=== PATIENT | male | born 1975 | race Hispanic/Latino ===

== ENCOUNTER → 2018-05-25 | Outpatient (CLI) | payer OTHER | END | disposition home or self-care (01) | LOC: RAH 09:44 | PROVIDERS: ATTEND Internal Medicine | DX: I73.9 Peripheral vascular disease, unspecified (principal) | CPT/HCPCS: 76775; 93925 ==

== ENCOUNTER → 2021-12-22 | Outpatient (CLI) | payer OTHER | END | disposition home or self-care (01) | LOC: DTH 11:42 | PROVIDERS: ATTEND Surgery | DX: Z71.3 Dietary counseling and surveillance (principal); I10 Essential (primary) hypertension; E66.3 Overweight; G47.33 Obstructive sleep apnea (adult) (pediatric); E66.01 Morbid (severe) obesity due to excess calories; K76.0 Fatty (change of) liver, not elsewhere classified; E78.00 Pure hypercholesterolemia, unspecified | CPT/HCPCS: 97803 ==

== ENCOUNTER → 2022-01-12 | Outpatient (CLI) | payer OTHER | END | disposition home or self-care (01) | LOC: DTH 11:25 | PROVIDERS: ATTEND Surgery | DX: Z71.3 Dietary counseling and surveillance (principal); G47.33 Obstructive sleep apnea (adult) (pediatric); E66.01 Morbid (severe) obesity due to excess calories; I10 Essential (primary) hypertension; E78.00 Pure hypercholesterolemia, unspecified; K76.0 Fatty (change of) liver, not elsewhere classified | CPT/HCPCS: 97803 ==

== ENCOUNTER → 2022-04-06 | Outpatient (CLI) | payer OTHER, MEDICARE ==
[~2022-04-06] MED LIST: ALBU8.5H8 IH; ALLO300T2 PO; ALPR0.255 PO; FLUT1BLS3 IH
== END | disposition home or self-care (01) ==
LOC: RAH 09:22
PROVIDERS: ATTEND Internal Medicine
DX: Z01.818 Encounter for other preprocedural examination (principal); K43.9 Ventral hernia without obstruction or gangrene; E66.01 Morbid (severe) obesity due to excess calories
CPT/HCPCS: 76705

== ENCOUNTER 2022-04-09 05:52 | Inpatient (IN) | payer OTHER, MEDICARE ==
[2022-04-02 09:40] LABS: BASOPHILS % (AUTO) 0.8 % (0.0-5.0); EOSINOPHILS % (AUTO) 6.5 % (0.0-8.0); HEMATOCRIT 43.2 % (42-54); LYMPHOCYTES % (AUTO) 19.5 % (21.0-51.0); MEAN CORPUSCULAR HEMOGLOBIN 30.5 pg (27.0-33.0); MEAN CORPUSCULAR HGB CONC 34.3 g/dL (32.0-36.0); MEAN CORPUSCULAR VOLUME 88.9 fL (79-99); MONOCYTES % (AUTO) 8.9 % (3.0-13.0); NEUTROPHILS % (AUTO) 63.9 % (40.0-77.0); PLATELET COUNT (AUTO) 213 K/uL (130-400); RED BLOOD CELL COUNT(AUTO) 4.86 MIL/uL (4.50-6.20); RED CELL DISTRIBUTION WIDTH 12.4 % (11.0-15.5); WHITE BLOOD COUNT (AUTO) 7.1 K/uL (4.8-10.8)
[2022-04-02 09:54] LABS: POTASSIUM 4.1 mmol/L (3.5-5.1)
[2022-04-08 09:19] VITALS: BP 172/73
[~2022-04-09] VITALS: Ht 172.7 cm; Wt 178.0 kg
[2022-04-09] VITALS (27 sets, daily range): BP systolic 104–139; BP diastolic 60–85
[~2022-04-09 05:52] MED LIST changes: -FLUT1BLS3 IH
[2022-04-09] MEDS ORDERED: LACTATED RINGERS 1000ML 1,000 ML IV ONE (06:14)
[2022-04-09] MEDS ORDERED: CEFOXITIN SODIUM 2 GM VIAL ONE (06:15)
[2022-04-09] MEDS: HEPARIN 5,000 UNIT VIAL ONE ×2 (06:44→07:55)
[2022-04-09] MEDS ORDERED: ONDANSETRON 4MG INJ ONE (06:46)
[2022-04-09] MEDS ORDERED: PROPOFOL 10 MG/ML 20ML VIAL IV ONE ×2 (06:46→08:19)
[2022-04-09] MEDS ORDERED: ROCURONIUM 10MG/1ML SYR 10 MG/ML ML ONE (06:47)
[2022-04-09] MEDS ORDERED: MIDAZOLAM HCL 1 MG/ML 2ML VIAL ONE (06:47)
[2022-04-09] MEDS ORDERED: FENTANYL CITRATE PF 50 MCG/1 ML 2ML VIAL ONE ×2 (06:47→08:25)
[2022-04-09] MEDS ORDERED: FLUT1BLS3 IH (06:48)
[2022-04-09] MEDS ORDERED: METHYLENE BLUE 5 MG/ML AMP ONE (06:54)
[2022-04-09] MEDS ORDERED: HEPARIN 1,000 UNIT VIAL ONE (06:54)
[2022-04-09] MEDS ORDERED: BUPIVACAINE/EPI/PF 0.5% 30ML VIAL IJ ONE (06:54)
[2022-04-09] MEDS ORDERED: KETAMINE 50MG/ML SYRINGE 50 MG/ML DISP.SYRIN IV ONE (07:05)
[2022-04-09] MEDS ORDERED: DEXMEDETOMIDINE HCL 200 MCG/2 ML VIAL IV ONE (07:05)
[2022-04-09] MEDS ORDERED: SCOPOLAMINE HYDROBROMIDE 1 EACH ADH..PATCH TD ONE (07:05)
[2022-04-09] MEDS ORDERED: MAGNESIUM SULFATE 1 GM/2 ML VIAL ONE (07:06)
[2022-04-09] MEDS: CEFOXITIN SODIUM 2 GM VIAL IVP SCH ×2 (07:29→08:00)
[2022-04-09] MEDS ORDERED: ROCURONIUM BROMIDE 10MG/1ML 5ML VL ONE (07:55)
[2022-04-09] MEDS ORDERED: GLYCOPYRROLATE 1 MG/5 ML SYRINGE ONE (07:57)
[2022-04-09] MEDS ORDERED: HEPARIN 5,000 UNIT VIAL SQ SCH (08:00)
[2022-04-09] MEDS ORDERED: LACTATED RINGERS 1000ML 1,000 ML IV SCH (08:00)
[2022-04-09] MEDS ORDERED: EPHEDRINE SULFATE 50 MG/ML AMPULE ONE (08:10)
[2022-04-09] MEDS ORDERED: NEOSTIGMINE 5MG/5ML SYR IV ONE (10:23)
[2022-04-09] MEDS ORDERED: KETOROLAC 30MG VIAL (30MG/ML) ONE (10:33)
[2022-04-09] MEDS ORDERED: METOCLOPRAMIDE 10 MG/2 ML VIAL ONE (10:33)
[2022-04-09] MEDS ORDERED: MEPERIDINE-PF 25 MG/ML SYG ONE ×3 (10:36→11:48)
[2022-04-09] MEDS ORDERED: IPRATROPIUM/ALBUTEROL SULFATE 3 ML SOLUTION IH ONE (11:12)
[2022-04-09] MEDS ORDERED: MORPHINE 2 MG SYG IVP PRN (13:00)
[2022-04-09] MEDS ORDERED: MORPHINE 4 MG SYG IM PRN ×2 (13:00→19:30)
[2022-04-09] MEDS: LACTATED RINGERS 1000ML 1,000 ML IV SCH ×2 (13:00→22:49)
[2022-04-09] MEDS: MORPHINE 2 MG SYG IM PRN ×3 (14:20→22:49)
[2022-04-09] MEDS: PROMETHAZINE HCL 25 MG/ML 1ML AMPULE IM PRN ×2 (14:20→18:30)
[2022-04-09] MEDS: HEPARIN 5,000 UNIT VIAL SQ SCH ×2 (14:21→20:25)
[2022-04-09] MEDS: FAMOTIDINE 20MG VIAL IV SCH (20:29)
[2022-04-09] MEDS: IPRATROPIUM/ALBUTEROL SULFATE 3 ML SOLUTION IH SCH (20:37)
[2022-04-09] MEDS: MEPERIDINE-PF 25 MG/ML SYG IVP PRN (20:43)
[2022-04-10] VITALS (7 sets, daily range): BP systolic 99–136; BP diastolic 49–78
[2022-04-10] MEDS: MEPERIDINE-PF 25 MG/ML SYG IVP PRN ×2 (00:13→06:00)
[2022-04-10] MEDS ORDERED: HYDROMORPHONE PCA 10 MG/50 ML 50 ML IV ONE (02:07)
[2022-04-10] MEDS ORDERED: HYDROMORPHONE PCA 10 MG/50 ML 50 ML IV PRN (02:30)
[2022-04-10] MEDS: MORPHINE 2 MG SYG IM PRN ×4 (02:53→17:07)
[2022-04-10] MEDS: HEPARIN 5,000 UNIT VIAL SQ SCH ×3 (04:13→20:09)
[2022-04-10] MEDS: LACTATED RINGERS 1000ML 1,000 ML IV SCH ×3 (05:00→20:04)
[2022-04-10] MEDS: IPRATROPIUM/ALBUTEROL SULFATE 3 ML SOLUTION IH SCH ×2 (06:35→18:36)
[2022-04-10] MEDS: LACTATED RINGERS 1000ML IV SCH (07:32)
[2022-04-10] MEDS: FAMOTIDINE 20MG VIAL IV SCH ×2 (09:06→20:04)
[2022-04-10] MEDS ORDERED: DIATR MEGLU/DIATRIZOATE SODIUM 30 ML BOTTLE ONE ×2 (09:24→09:45)
[2022-04-10] MEDS ORDERED: ONDANSETRON ODT 4MG TAB SL PRN (17:30)
[2022-04-10] MEDS: APAP/CODEINE 120/12MG 5ML PO PRN (18:09)
[2022-04-11] MEDS: APAP/CODEINE 120/12MG 5ML PO PRN ×3 (00:25→09:56)
[2022-04-11] MEDS: LACTATED RINGERS 1000ML 1,000 ML IV SCH (03:20)
[2022-04-11 03:43] VITALS: BP 144/85
[2022-04-11] MEDS: LACTATED RINGERS 1000ML IV SCH (06:15)
[2022-04-11] MEDS: HEPARIN 5,000 UNIT VIAL SQ SCH (06:31)
[2022-04-11] MEDS: IPRATROPIUM/ALBUTEROL SULFATE 3 ML SOLUTION IH SCH (07:01)
[2022-04-11 08:00] VITALS: BP 119/51
[2022-04-11] MEDS: FAMOTIDINE 20MG VIAL IV SCH (08:58)
== END 2022-04-11 12:50 | disposition home or self-care (01) | DRG 621 ==
LOC: DAHIP 05:52 → 4DH 12:30
PROVIDERS: ADMIT Surgery; ATTEND Surgery
PROC: 0DB64Z3 Excision of Stomach, Percutaneous Endoscopic Approach, Vertical (ICD-10-PCS; 2022-04-09)
PROC: 5A09357 Assistance with Respiratory Ventilation, Less than 24 Consecutive Hours, Continuous Positive Airway Pressure (ICD-10-PCS; 2022-04-09)
PROC: 0WQF4ZZ Repair Abdominal Wall, Percutaneous Endoscopic Approach (ICD-10-PCS; principal; 2022-04-09 07:20)
PROC: 5A09357 Assistance with Respiratory Ventilation, Less than 24 Consecutive Hours, Continuous Positive Airway Pressure (ICD-10-PCS; 2022-04-10)
DX: E66.01 Morbid (severe) obesity due to excess calories (principal); Z68.43 Body mass index [BMI] 50.0-59.9, adult; K43.9 Ventral hernia without obstruction or gangrene; Z20.822 Contact with and (suspected) exposure to COVID-19; I10 Essential (primary) hypertension; K66.0 Peritoneal adhesions (postprocedural) (postinfection); F41.9 Anxiety disorder, unspecified
CPT/HCPCS: 36415; 74240; 80048; 85025; 87426; 93005; 94640; 94660; 94664; G0378; J0694; J1170; J1644; J1885; J2175; J2250; J2405; J2550; J2704; J2710; J2765; J3010; J3475; J3490; J7030; J7120; Q9963; Q9968

== ENCOUNTER → 2023-11-01 | Outpatient (CLI) | payer OTHER, MEDICARE ==
[~2023-11-01] MED LIST changes: +FLUT1BLS3 IH; +IOHEXOL 350 MG/ML 100ML INFUS..BTL IV ONE
== END ==
LOC: RAH 08:15
PROVIDERS: ATTEND Surgery
DX: K42.9 Umbilical hernia without obstruction or gangrene (principal); K43.9 Ventral hernia without obstruction or gangrene
CPT/HCPCS: 74178; Q9967

== ENCOUNTER → 2024-07-09 | Outpatient (CLI) | payer OTHER, MEDICARE ==
[~2024-07-09] MED LIST changes: -IOHEXOL 350 MG/ML 100ML INFUS..BTL IV ONE
[2024-07-09 22:23] VITALS: PULSE 62; RESP 16
[2024-07-09 23:00] VITALS: PULSE 58; RESP 20
[2024-07-09 23:30] VITALS: PULSE 58; RESP 18
[2024-07-10] VITALS (10 sets, daily range): PULSE 52–64; RESP 4–20
== END | disposition home or self-care (01) ==
LOC: SLP 20:26
PROVIDERS: ATTEND Internal Medicine
DX: G47.33 Obstructive sleep apnea (adult) (pediatric) (principal)
CPT/HCPCS: 95810

== ENCOUNTER → 2024-08-13 | Outpatient (CLI) | payer OTHER, MEDICARE ==
[2024-08-13 22:00] VITALS: PULSE 52; RESP 16
[2024-08-13 22:30] VITALS: PULSE 52; RESP 10
[2024-08-13 23:00] VITALS: PULSE 50; RESP 16
[2024-08-13 23:30] VITALS: PULSE 52; RESP 16
[2024-08-14] VITALS (10 sets, daily range): PULSE 48–94; RESP 12–16
== END | disposition home or self-care (01) ==
LOC: SLP 20:28
PROVIDERS: ATTEND Internal Medicine
DX: G47.33 Obstructive sleep apnea (adult) (pediatric) (principal)
CPT/HCPCS: 95811